=== PATIENT | male | born 1960 | race Two or more races ===

== ENCOUNTER → 2021-11-30 | Day surgery (SDC) | payer OTHER ==
[~2021-11-30] MED LIST: ATORVASTATIN CA10 MG PO; PERCOCET 5-3251 EACH PO; PROTONIX40 MG PO; ZYLOPRIM100 M1 PO
== END | disposition home or self-care (01) ==
LOC: ADM 11-25 11:15 → CIR.AMB 11:00
PROVIDERS: ATTEND Surgery
DX: N48.6 Induration penis plastica (principal); Z87.891 Personal history of nicotine dependence; M19.90 Unspecified osteoarthritis, unspecified site; Z88.8 Allergy status to other drugs, medicaments and biological substances

== ENCOUNTER 2022-06-14 10:32 | Day surgery (SDC) | payer OTHER ==
[~2022-06-14] VITALS: Ht 177.8 cm; Wt 95.3 kg
[~2022-06-14 10:32] MED LIST changes: +CLONAZEPAM0.5 MG PO; +GRALISE600 MG PO; +TADALAFIL5 MG PO; +WELLBUTRIN SR100 MG PO
[2022-06-14] MEDS ORDERED: MELOXICAM15 MG PO (15:59)
[2022-06-14] MEDS ORDERED: AMOX-CLAV 875-1 EACH PO (15:59)
[2022-06-14] MEDS ORDERED: TRAMADOL HCL50 MG PO (15:59)
== END 2022-06-14 18:10 | disposition home or self-care (01) ==
LOC: CIR.AMB 10:32
PROVIDERS: ATTEND Surgery
DX: N47.1 Phimosis (principal); Z20.822 Contact with and (suspected) exposure to COVID-19; Z87.891 Personal history of nicotine dependence